=== PATIENT | male | born 1940 | race Caucasian/White ===

== ENCOUNTER 2016-06-14 07:33 | Day surgery (SDC) | payer BC ==
--- NOTE | ~2016-06-14 | EGD ---
EGD REPORT [facility] [address] [address] NAME: PRESLEY RHODES : [birth year] STATUS : REG [facility]#: [id number] AGE: 75 ADM/REG DATE : 06/14/16 MR#: [id number] REPORT SERV DATE: 06/14/16 DICTATED BY: BERNIE PHILLIP DATE: 06/14/16 REPORT STATUS : Draft TRANSCRIBED BY: [facility] DATE: 06/14/16 [facility] Patient Name: Presley Rhodes Date of : 1940 Attending MD: BERNIE PHILLIP MD Procedure Date No Time: 06/14/2016 Procedure: Colonoscopy Indications: Follow-up for history of adenomatous polyps in the colon, Personal history of malignant neoplasm of the prostate, Last colonoscopy: July 2012 Referring MD: NANCIE SMITH MD Medicines: Propofol per Anesthesia Complications: No immediate complications. Estimated blood loss: None. Procedure: Pre-Anesthesia Assessment: - After reviewing the risks and benefits, the patient was deemed in satisfactory condition to undergo the procedure. - Prior to the procedure, a History and Physical was performed, and patient medications and allergies were reviewed. The patient's tolerance of previous anesthesia was also reviewed. The risks and benefits of the procedure and the sedation options and risks were discussed with the patient. All questions were answered, and informed consent was obtained. Prior Anticoagulants: The patient has taken no previous anticoagulant or antiplatelet agents. ASA Grade Assessment: III - A patient with severe systemic disease. After reviewing the risks and benefits, the patient was deemed in satisfactory condition to undergo the procedure. After I obtained informed consent, the scope was passed under direct vision. Throughout the procedure, the patient's blood pressure, pulse, and oxygen saturations were monitored continuously. The CF [id number] was introduced through the anus and advanced to the cecum, identified by appendiceal orifice and ileocecal valve. The colonoscopy was performed without difficulty. The ileocecal valve and appendiceal orifice were photographed. The patient tolerated the procedure well. The quality of the bowel preparation was adequate to identify polyps 6 mm and larger in size. The bowel preparation used was polyethylene glycol (PEG). Scope withdrawal time was greater than 8 minutes. Findings: The perianal and digital rectal examinations were normal. Pertinent EGD REPORT [address] [address] NAME: PRESLEY RHODES : [birth year] STATUS : REG [facility]#: [id number] AGE: 75 ADM/REG DATE : 06/14/16 MR#: [id number] REPORT SERV DATE: 06/14/16 DICTATED BY: BERNIE PHILLIP DATE: 06/14/16 REPORT STATUS : Draft TRANSCRIBED BY: [employer] DATE: 06/14/16 negatives include normal sphincter tone. Non-bleeding internal hemorrhoids were found during retroflexion and were small and Grade I (internal hemorrhoids that do not prolapse). A sessile polyp was found in the proximal ascending colon. The polyp was 6 mm in size. The polyp was removed with a cold snare. Resection and retrieval were complete. Estimated blood loss: none. The exam was otherwise without abnormality. Impression: - Non-bleeding internal hemorrhoids. - One 6 mm polyp in the proximal ascending colon. Resected and retrieved. - The examination was otherwise normal. Recommendation: - Discharge patient to home (ambulatory). - Return to previous diet. - Continue present medications. - Await pathology results. - Repeat colonoscopy in 5 years for surveillance. - Patient has a contact number available for emergencies. The signs and symptoms of potential delayed complications were discussed with the patient. Return to normal activities tomorrow. Written discharge instructions were provided to the patient. Procedure Code(s): --- Professional --- 40583, Colonoscopy, flexible, proximal to splenic flexure; with removal of tumor(s), polyp(s), or other lesion(s) by snare technique Diagnosis Code(s): --- Professional --- K64.0, First degree hemorrhoids D12.2, Benign neoplasm of ascending colon Z86.010, Personal history of colonic polyps Z85.46, Personal history of malignant neoplasm of prostate CPT copyright 2013 [employer]. All rights reserved. The codes documented in this report are preliminary and upon grocery carrier review may be revised to meet current compliance requirements. BERNIE PHILLIP MD 06/14/2016 9:17 AM This report has been signed electronically. Number of Addenda: 0 EGD REPORT [facility] [address] [address] NAME: PRESLEY RHODES : [birth year] STATUS : REG [facility] PAT#: [id number] AGE: 75 ADM/REG DATE : 06/14/16 MR#: [id number] REPORT SERV DATE: 06/14/16 DICTATED BY: BERNIE PHILLIP DATE: 06/14/16 REPORT STATUS : Draft TRANSCRIBED BY: [facility] DATE: 06/14/16 Note Initiated On: 06/14/2016 8:57 AM Scope Withdrawal Time 0 hours 8 minutes 16 seconds [address] [id number]
[~2016-06-14 07:33] MED LIST: ALLEGRA180 PO; ATRONASAL3 NAS; FLOMAX4 PO; FLONASE NAS; IRBESARTAN/HCTZ PO; JANUVIA100 MG PO; PRILO PO; SINGULAIR1 PO
== END 2016-06-14 23:59 | disposition home or self-care (01) ==
LOC: DMU 07:33
PROVIDERS: Internal Medicine Gastroenterology
PROC: 0DBK8ZZ Excision of Ascending Colon, Via Natural or Artificial Opening Endoscopic (ICD-10-PCS; principal; 2016-06-14 09:00)
DX: D12.2 Benign neoplasm of ascending colon (principal); K64.0 First degree hemorrhoids; I10 Essential (primary) hypertension; E11.9 Type 2 diabetes mellitus without complications; J44.9 Chronic obstructive pulmonary disease, unspecified; G47.33 Obstructive sleep apnea (adult) (pediatric); Z85.46 Personal history of malignant neoplasm of prostate; Z79.51 Long term (current) use of inhaled steroids; Z79.899 Other long term (current) drug therapy; Z86.010 Personal history of colon polyps; Z87.891 Personal history of nicotine dependence; Z87.01 Personal history of pneumonia (recurrent); Z98.890 Other specified postprocedural states
CPT/HCPCS: 82962; 88305